=== PATIENT | male | born 1965 | race Caucasian/White ===

== ENCOUNTER 2023-03-09 10:11 | Emergency (ER) | payer OTHER, SELFPAY ==
[2023-03-09] VITALS (20 sets, daily range): BP systolic 96–134; BP diastolic 64–97; PULSE 70–92; RESP 20; TEMP 36.2; O2SAT 96–100; BMI 18.2
[2023-03-09] MEDS: LORazepam 2 MG/ML inj 0.5 MG IVP (10:43)
[2023-03-09] MEDS: NITROGLYCERIN 0.4 MG TAB.SUBL SUBLINGUAL (10:50)
--- NOTE | 2023-03-09 10:51 | ED.GENADULT ---
HPI - General Adult General Chief complaint: Shortness of Breath/Dyspnea Stated complaint: shortness of breath Time Seen by Provider: 03/09/23 10:22 Source: patient Mode of arrival: EMS Limitations: no limitations History of Present Illness HPI narrative: 57-year-old male presenting today with a sensation of something stuck in his throat. Patient states that he went to bed without difficulty last night. Woke up this morning had rice Krispies with milk for breakfast. Shortly after finishing breakfast he felt something stuck on the left side of his throat. Past medical history significant for alcohol use disorder, chronic anemia, polyneuropathy, tachycardia, hepatic steatosis, history of alcohol withdrawal delirium, mass of the ear canal, history of multiple syncopal episodes, hyponatremia, hypoalbuminemia, pancreatitis, tobacco use disorder, type 2 diabetes, osteopenia, stage 3 chronic kidney disease, history of cellulitis of the extremities, severe tricuspid regurgitation, chronic heart failure with a reduced ejection fracture, history of acute encephalopathy. Current medications include Jardiance, spironolactone, Entresto, pravastatin, gabapentin, daily aspirin, carvedilol, albuterol inhaler, Lasix. Related Data Home Medications Medication Instructions Recorded Confirmed acetaminophen 03/09/23 albuterol sulfate 90 mcg/actuation 2 puff inhalation Q4H PRN wheezing 03/09/23 03/09/23 aerosol inhaler aspirin 81 mg tablet,delayed 81 mg PO DAILY 03/09/23 03/09/23 release (Adult Aspirin Regimen) carvedilol 3.125 mg tablet (Coreg) 3.125 mg PO BID 03/09/23 03/09/23 empagliflozin 10 mg tablet 10 mg PO DAILY 03/09/23 03/09/23 (Jardiance) furosemide 20 mg tablet (Lasix) 20 mg PO DAILY 03/09/23 03/09/23 gabapentin 300 mg capsule 300 mg PO TID 03/09/23 03/09/23 (Neurontin) pravastatin 20 mg tablet 20 mg PO QHS 03/09/23 03/09/23 sacubitril 24 mg-valsartan 26 mg 1 tab PO BID 03/09/23 03/09/23 tablet (Entresto) spironolactone 25 mg tablet 25 mg PO DAILY 03/09/23 03/09/23 (Aldactone) Allergies Allergy/AdvReac Type Severity Reaction Status Date / Time No Known Drug Allergies Allergy Verified 03/09/23 10:19 Review of Systems Status of ROS: Reports: 10 or more systems reviewed and unremarkable except as noted in History and below [facility] Social History Smoking Status: Current every day smoker How often do you have a drink containing alcohol: never AUDIT-C Alcohol total score: 0 Non-prescribed substance use: marijuana (any form) Exam Narrative: Exam Narrative: Thin patient, appears to be quite anxious. Alert and oriented. Answers questions appropriately. Thoughts are goal oriented and rational. No tangential or magical thinking noted. Patient speaks in full sentences without needing to catch his breath. He continuously clears his throat. He then tells me that he feels like there is something crawling all over his body and the patient becomes a bit worked up. He told EMS that he felt short of breath so he arrived on 2 L nasal cannula standing 100%. We did remove his oxygen he continued to saturate at 100%. He stated however that he could not breathe and requested the oxygen be placed back on. HEENT: Normocephalic atraumatic. Pupils are equally round reactive to light. Extraocular muscles are intact. Conjunctivae are moist without any icterus noted. Slightly dry mucous membranes. Posterior pharynx is normal. Neck is soft without any lymphadenopathy or thyromegaly. No masses are appreciated. Cardiovascular: Heart is regular rate and rhythm, distant heart sounds. Lungs: Clear to auscultation bilaterally no wheezes rhonchi or rales are appreciated. Patient takes deep breaths without any discomfort. Abdomen: Soft and nontender nondistended with normal bowel sounds. Extremities: Bilateral lower extremities are without edema. Skin: Well perfused without any obvious rashes. Const: Vital Signs, click to edit/add: Vital Signs - 24 hr 03/09/23 10:15 03/09/23 10:52 03/09/23 10:57 Temperature 97.1 F L Pulse Rate 78 Pulse Rate [Pulse Oximeter] 88 Respiratory Rate 20 Blood Pressure 128/81 Blood Pressure [Le ft Upper Arm] 134/87 Pulse Oximetry 100 100 100 Oxygen Delivery Me thod Room Air Nasal Cannula Oxygen Flow Rate 2 03/09/23 10:58 03/09/23 11:00 03/09/23 11:01 Temperature Pulse Rate 81 88 92 Pulse Rate [Pulse Oximeter] Respiratory Rate Blood Pressure 108/71 Blood Pressure [Le ft Upper Arm] Pulse Oximetry 99 99 98 Oxygen Delivery Me thod Oxygen Flow Rate 03/09/23 11:06 03/09/23 11:11 03/09/23 11:16 Temperature Pulse Rate 83 81 80 Pulse Rate [Pulse Oximeter] Respiratory Rate Blood Pressure 108/75 117/77 116/85 Blood Pressure [Le ft Upper Arm] Pulse Oximetry 96 98 98 Oxygen Delivery Me thod Oxygen Flow Rate 03/09/23 11:22 03/09/23 11:30 03/09/23 11:31 Temperature Pulse Rate 70 73 73 Pulse Rate [Pulse Oximeter] Respiratory Rate Blood Pressure 118/75 125/97 H Blood Pressure [Le ft Upper Arm] Pulse Oximetry 98 98 99 Oxygen Delivery Me thod Oxygen Flow Rate 03/09/23 11:32 03/09/23 12:01 03/09/23 12:02 Temperature Pulse Rate 73 75 78 Pulse Rate [Pulse Oximeter] Respiratory Rate Blood Pressure 96/64 Blood Pressure [Le ft Upper Arm] Pulse Oximetry 98 97 97 Oxygen Delivery Me thod Oxygen Flow Rate 03/09/23 12:05 03/09/23 12:30 03/09/23 12:31 Temperature Pulse Rate 71 77 76 Pulse Rate [Pulse Oximeter] Respiratory Rate Blood Pressure 105/67 102/66 Blood Pressure [Le ft Upper Arm] Pulse Oximetry 98 97 99 Oxygen Delivery Me thod Oxygen Flow Rate 03/09/23 12:32 03/09/23 13:01 Temperature Pulse Rate 80 Pulse Rate [Pulse Oximeter] Respiratory Rate Blood Pressure 121/75 Blood Pressure [Le ft Upper Arm] Pulse Oximetry 97 Oxygen Delivery Me thod Oxygen Flow Rate Course Course ED Course: IV was established and patient is given 0.5 mg of IV bad event. This does calm him down quite a bit. We proceeded with sublingual nitro and EZ gas. Unfortunately, the Ativan made the patient extremely drowsy and he slept for almost 5 hours. Upon waking, he stated that his throat felt significantly better and he no longer felt like there was something stuck in his throat. He was able to get up and dress himself. Vital Signs Vital signs: Initial Vital Signs Temperature 97.1 F L 03/09/23 10:15 Temperature Source Temporal Artery Scan 03/09/23 10:15 Pulse Rate 88 03/09/23 10:15 Respiratory Rate 20 03/09/23 10:15 Blood Pressure 134/87 03/09/23 10:15 Blood Pressure Mean 102 03/09/23 10:15 Blood Pressure Position Supine 03/09/23 10:15 Pulse Oximetry 100 03/09/23 10:15 Oxygen Delivery Method Room Air 03/09/23 10:15 Vital Signs Temperature 97.1 F L 03/09/23 10:15 Pulse Rate 88 03/09/23 10:15 Respiratory Rate 20 03/09/23 10:15 Blood Pressure 134/87 03/09/23 10:15 Pulse Oximetry 100 03/09/23 10:15 Oxygen Delivery Method Room Air 03/09/23 10:15 Temperature 97.1 F L 03/09/23 10:15 Pulse Rate 80 03/09/23 12:32 Respiratory Rate 20 03/09/23 10:15 Blood Pressure 121/75 03/09/23 13:01 Pulse Oximetry 97 03/09/23 12:32 Oxygen Delivery Method Nasal Cannula 03/09/23 10:52 Oxygen Flow Rate 2 03/09/23 10:52 Medications Administered Medications: Discontinued Medications Generic Name Dose Route Start Last Admin Trade Name Freq PRN Reason Stop Dose Admin Lorazepam 0.5 mg 03/09/23 10:25 03/09/23 10:43 Lorazepam 2 Mg/Ml Inj IVP 03/09/23 10:26 0.5 mg ONCE ONE Administration Nitroglycerin 0.4 mg 03/09/23 10:28 03/09/23 10:50 Nitroglycerin 0.4 Mg Tab.Subl SUBLINGUAL 03/09/23 10:29 0.4 mg ONCE ONE Administration Simethicone/Sodium Bicarb/Citric Ac 1 each 03/09/23 10:28 03/09/23 11:00 Simethicone/Sod Bicarb/Cit Ac 1 Each Gran.Ef.Pk PO 03/09/23 10:29 1 each ONCE ONE Administration Medical Decision Making MDM Narrative Medical decision making narrative: 57-year-old male with foreign object in his throat, resolved with treatment per above. Discharge Plan Discharge Clinical Impression: Feeling of foreign body in throat Patient Disposition: Home, Self-Care Condition: Stable Additional Instructions: Follow-up with your primary care provider as needed. Prescriptions: No Action Jardiance 10 mg tablet 10 mg PO DAILY spironolactone [Aldactone] 25 mg tablet 25 mg PO DAILY Entresto 24-26 mg tablet 1 tab PO BID pravastatin 20 mg tablet 20 mg PO QHS gabapentin [Neurontin] 300 mg capsule 300 mg PO TID aspirin [Adult Aspirin Regimen] 81 mg tablet,delayed release (DR/EC) 81 mg PO DAILY acetaminophen carvedilol [Coreg] 3.125 mg tablet 3.125 mg PO BID Rx Instructions: must administer with a meal/food albuterol sulfate 90 mcg/actuation HFA aerosol inhaler 2 puff INHALATION Q4H PRN (Reason: wheezing) furosemide [Lasix] 20 mg tablet 20 mg PO DAILY Follow Up/Referrals: Shahriar Herrera MD [Primary Care Provider] - Stand Alone Forms: [facility] Info Instructions
[2023-03-09] MEDS: SIMETHICONE/SOD BICARB/CIT AC 1 EACH GRAN.EF.PK PO (11:00)
--- NOTE | 2023-03-09 12:30 | ED.NURSE ---
Pt sleeping in room.
== END 2023-03-09 15:25 | disposition home or self-care (01) ==
PROVIDERS: Emergency Provider Family Medicine; PCP Family Medicine
DX: R09.A2 Foreign body sensation, throat (principal)
CPT/HCPCS: 96374; 99283; 99284; A9270; J2060